=== PATIENT | male | born 2000 | race Caucasian/White ===

== ENCOUNTER → 2024-06-07 08:51 | Outpatient (CLI) | payer MEDICAID, SELFPAY | LOC: SL 08:51 | PROVIDERS: PCP Nurse Practitioner Family; Visit Provider Specialist | DX: R06.83 Snoring (principal) | CPT/HCPCS: G0399 ==

== ENCOUNTER 2025-02-22 13:03 | Outpatient (CLI) | payer MEDICAID, SELFPAY ==
--- NOTE | 2025-02-22 13:06 | US_ITS ---
FINAL REPORT TECHNIQUE: Ultrasound images of the testicles were obtained bilaterally. Color Doppler images were obtained. CLINICAL HISTORY: PAIN FINDINGS: The testicles are normal in size and echotexture bilaterally. Arterial flow is identified bilaterally. There are small bilateral hydroceles. Small epididymal cysts are seen. Small calcifications are present consistent with microlithiasis. There is no evidence of torsion. IMPRESSION: Small calcifications bilaterally consistent with microlithiasis. Recommend follow-up testicular ultrasound and urologic evaluation. No evidence of torsion. Reviewed, Interpreted and Dictated by Andrews Huitron MD Transcribed by Gerri Aponte Authenticated and [facility]
== END 2025-02-22 23:59 | disposition home or self-care (01) ==
LOC: RAD 13:04
PROVIDERS: PCP Nurse Practitioner Family; Visit Provider Nurse Practitioner Family
DX: N50.819 Testicular pain, unspecified (principal); N50.89 Other specified disorders of the male genital organs
CPT/HCPCS: 76870

== ENCOUNTER 2025-09-02 11:11 | Outpatient (CLI) | payer MEDICAID, SELFPAY ==
--- NOTE | 2025-09-02 10:00 | US_ITS ---
FINAL REPORT TECHNIQUE: Ultrasound images of the testicles were obtained bilaterally. Color Doppler images were obtained. CLINICAL HISTORY: F/U SWELLING COMPARISON: 02/22/2025 FINDINGS: The testicles are normal in size and echotexture bilaterally. Arterial flow is identified bilaterally. There is a right epididymal cyst measuring 5 x 3 mm. Trace hydroceles are noted. Small calcifications are noted consistent with microlithiasis bilaterally. IMPRESSION: Bilateral microlithiasis. One year follow-up recommended. Reviewed, Interpreted and Dictated by Andrews Huitron MD Transcribed by Anny Rubio Authenticated and [facility]
== END 2025-09-02 23:59 | disposition home or self-care (01) ==
LOC: RAD 11:11
PROVIDERS: PCP Nurse Practitioner Family; Visit Provider Urology
DX: N50.89 Other specified disorders of the male genital organs (principal); N43.3 Hydrocele, unspecified
CPT/HCPCS: 76870